=== PATIENT | male | born 2000 | race Caucasian/White ===

== ENCOUNTER 2023-01-22 12:46 | Emergency (ER) | payer OTHER ==
[2023-01-22 12:51] VITALS: BP 132/76; PULSE 86; RESP 18; TEMP 98.6; BMI 20.7
[2023-01-22] MEDS ORDERED: SODIUM CHLORIDE 1,000 ML IV STA (14:18)
[2023-01-22] MEDS ORDERED: ASPIRIN 81 MG CHEWABLE TABLETS PO ONE (14:27)
[2023-01-22] MEDS ORDERED: ASPIRIN 81 MG CHEWABLE TABLETS ONE (14:45)
[2023-01-22 15:30] LABS: BASO % 0.6 % (0-2.0); EOS % 1.4 % (0-4.5); HEMATOCRIT 42.8 % (35.4-49); HEMOGLOBIN 15.3 GM/dL (11.7-16.9); LYMPH % 27.9 % (8-40); MCHC 35.8 g/dl (32.0-35.9); MEAN CELL VOLUME 86.7 fl (80-96); MEAN PLT VOLUME 8.3 fl (7.5-11.1); MONO % 6.2 % (3.8-10.2); NEUT % 63.9 % (42.8-82.8); PLATELET COUNT 261 10^3/uL (134-434); RBC 4.94 M/mm3 (4.00-5.60); RDW 12.4 % (11.9-15.9); WHITE BLOOD COUNT 7.5 K/mm3 (4.0-10.0)
[2023-01-22 15:37] LABS: INR 1.18 (0.83-1.09); PROTHROMBIN TIME (PATIENT) 13.7 SEC (9.7-13.0)
[2023-01-22 15:39] LABS: ACTIVATED PTT 31.7 SECONDS (25.2-36.5)
[2023-01-22 15:57] LABS: POTASSIUM 3.9 mmol/L (3.5-5.1)
[2023-01-22 15:59] LABS: ALBUMIN 4.1 g/dl (3.4-5.0); BLOOD UREA NITROGEN 16.4 mg/dL (7-18); CALCIUM 9.4 mg/dL (8.5-10.1); MAGNESIUM 2.2 mg/dL (1.8-2.4)
[2023-01-22 16:05] LABS: BILIRUBIN,TOTAL 1.4 mg/dL (0.2-1)
== END 2023-01-22 18:27 | disposition home or self-care (01) ==
LOC: JER 12:46
PROC: 3E0337Z Introduction of Electrolytic and Water Balance Substance into Peripheral Vein, Percutaneous Approach (ICD-10-PCS; principal; 2023-01-22)
DX: M94.0 Chondrocostal junction syndrome [Tietze] (principal); R07.89 Other chest pain; R06.02 Shortness of breath
CPT/HCPCS: 36415; 71046-TC-FY; 71275-TC; 80053; 83735; 84484; 85025; 85379; 85610; 85730; 93005; 93010; 99285-25; Q9967

== ENCOUNTER 2023-08-27 17:33 | Emergency (ER) | payer OTHER ==
[2023-08-27 17:43] VITALS: BP 113/64; PULSE 98; RESP 18; TEMP 98.4; BMI 22.4
[2023-08-27] MEDS ORDERED: KETOROLAC TROMETHAMINE 30 MG/1 ML VIAL ONE (18:09)
[2023-08-27] MEDS: KETOROLAC TROMETHAMINE 30 MG/1 ML VIAL IM ONE (18:14)
== END 2023-08-27 19:21 | disposition home or self-care (01) ==
LOC: JER 17:33
PROC: 3E0233Z Introduction of Anti-inflammatory into Muscle, Percutaneous Approach (ICD-10-PCS; principal; 2023-08-27)
DX: J02.9 Acute pharyngitis, unspecified (principal); R51.9 Headache, unspecified; M54.2 Cervicalgia; R53.81 Other malaise; Z20.822 Contact with and (suspected) exposure to COVID-19
CPT/HCPCS: 0241U-QW; 87651; 99284-25

== ENCOUNTER 2024-02-12 04:10 | Emergency (ER) | payer OTHER ==
[2024-02-12 04:21] VITALS: BP 121/65; PULSE 85; RESP 18; TEMP 98.4; BMI 22.4
[2024-02-12] MEDS ORDERED: BACITRACIN ZINC 15 GM TUBE TOPICAL OINTMENT ONE (06:36)
[2024-02-12] MEDS: BACITRACIN 0.9 GM PACKET TP ONE (06:39)
== END 2024-02-12 06:39 | disposition home or self-care (01) ==
LOC: JER 04:10
DX: S31.20XA Unspecified open wound of penis, initial encounter (principal); X50.1XXA Overexertion from prolonged static or awkward postures, initial encounter
CPT/HCPCS: 99283-25

== ENCOUNTER 2024-09-30 17:54 | Emergency (ER) | payer OTHER ==
[2024-09-30 18:02] VITALS: BP 117/63; PULSE 96; RESP 20; TEMP 98.1; BMI 22.6
[2024-09-30] MEDS ORDERED: KETOROLAC TROMETHAMINE 30 MG/1 ML VIAL ONE (18:31)
[2024-09-30] MEDS: KETOROLAC TROMETHAMINE 30 MG/1 ML VIAL IM ONE (18:35)
== END 2024-09-30 19:30 | disposition home or self-care (01) ==
LOC: JERFT 17:54
PROC: 3E0233Z Introduction of Anti-inflammatory into Muscle, Percutaneous Approach (ICD-10-PCS; principal; 2024-09-30)
DX: J02.9 Acute pharyngitis, unspecified (principal)
CPT/HCPCS: 87651; 99284-25